=== PATIENT | female | born 1950 | race Caucasian/White ===

== ENCOUNTER 2017-03-01 05:41 | Inpatient (IN) | payer OTHER ==
[2017-02-26 10:02] VITALS: Ht 157.5 cm; Wt 91.0 kg
[2017-03-01] VITALS (48 sets, daily range): BP systolic 98–141; BP diastolic 59–78; PULSE 62–104; RESP 12–20
[~2017-03-01] VITALS: Ht 157.5 cm; Wt 91.0 kg
[~2017-03-01 05:41] MED LIST: ASPI-535; CEFAZOLIN 2 GM/50 ML (PMX) 50 ML IVPB ONE; CEPH-443 PO; CYCL-319 PO; DICL75TA2; ENAL10TA88; HYDR-3498 PO; HYDR-906 PO; LOVA40TA64; METO-53; NAPR-260 PO; RANI150C11; [UNRECOGNIZED DRUG - REMARK] PO; bp med PO; cholesterol med PO; heart med
[2017-03-01] MEDS ORDERED: EPINEPHrine 0.1 MG/ML SYG ONE (07:00)
[2017-03-01] MEDS ORDERED: ATROPINE 1 MG/10 ML SYRINGE ONE (07:00)
[2017-03-01] MEDS ORDERED: ISOS30TA5 PO (07:17)
[2017-03-01] MEDS ORDERED: MECL-77 PO (07:19)
[2017-03-01] MEDS ORDERED: MELO7.5O PO (07:19)
[2017-03-01] MEDS ORDERED: GABA100C14 PO (07:19)
[2017-03-01] MEDS ORDERED: ATOR20TA38 PO (07:19)
--- NOTE | 2017-03-01 07:19 | HPN ---
Date/Time of Note Date/Time of Note DATE: 03/01/17 TIME: 07:19 Interval H&P Admission Note Pt. seen H&P reviewed: No system changes HUEY CELESTE MD Mar 01, 2017 07:19
[2017-03-01] MEDS ORDERED: PROPOFOL 20 ML ONE (07:30)
[2017-03-01] MEDS ORDERED: GLYCOPYRROLATE 0.4 MG INJ ONE (07:30)
[2017-03-01] MEDS ORDERED: ROCURONIUM 50 MG INJ ONE (07:30)
[2017-03-01] MEDS ORDERED: NEOSTIGMINE 3 MG/3 ML SYRINGE ONE (07:31)
[2017-03-01] MEDS ORDERED: CEFAZOLIN 1 GM INJ ONE (07:31)
[2017-03-01] MEDS ORDERED: MIDAZOLAM 1 MG/ML 2 ML INJ ONE (07:34)
[2017-03-01] MEDS ORDERED: ONDANSETRON 4 MG INJ ONE (07:34)
[2017-03-01] MEDS ORDERED: FENTAnyl 50 MCG/ML VIAL ONE (07:34)
[2017-03-01] MEDS ORDERED: DEXAMETHASONE 4 MG/ML 1 ML INJ ONE (07:34)
[2017-03-01] MEDS ORDERED: morphine SULFATE/PF (10 MG/10 ML) INJ ONE (07:35)
[2017-03-01] MEDS ORDERED: PHENYLephrine (100 MCG/ML) 5ML SYG ONE (07:51)
[2017-03-01] MEDS ORDERED: KETOROLAC 30 MG INJ IV PRN (08:30)
[2017-03-01] MEDS ORDERED: EPHEDrine SULFATE 50 MG/5 ML SYG IV PRN (08:30)
[2017-03-01] MEDS ORDERED: LABETALOL HCL 20MG INJ IV PRN (08:30)
[2017-03-01] MEDS ORDERED: FENTAnyl 50 MCG/ML VIAL IV PRN ×3 (08:30)
[2017-03-01] MEDS ORDERED: OXYCODONE/ACETAMINOPHEN (5/325) TAB PO PRN ×2 (08:30)
[2017-03-01] MEDS ORDERED: morphine 4 MG/ML VIAL IV PRN (08:30)
[2017-03-01] MEDS ORDERED: MIDAZOLAM 1 MG/ML 2 ML INJ IV PRN (08:30)
[2017-03-01] MEDS ORDERED: morphine 2 MG INJ IV PRN (08:30)
[2017-03-01] MEDS ORDERED: NALOXONE (0.4 MG/ML) INJ IV PRN (08:30)
[2017-03-01] MEDS ORDERED: HYDROmorphONE (0.2 MG/ML) 10ML SYG IV PRN ×3 (08:30)
[2017-03-01] MEDS ORDERED: ALBUTEROL 0.083% (NEB) 2.5 MG/3 ML AMP HHN PRN (08:30)
[2017-03-01] MEDS ORDERED: ONDANSETRON 4 MG INJ IV PRN ×2 (08:30)
[2017-03-01] MEDS ORDERED: hydrALAzine 20 MG INJ IV PRN (08:30)
[2017-03-01] MEDS ORDERED: MEPERIDINE 25 MG INJ IV PRN (08:30)
[2017-03-01] MEDS ORDERED: IPRATROPIUM (NEB) 0.5 MG/2.5 ML AMP HHN PRN (08:30)
[2017-03-01] MEDS ORDERED: ZOLPIDEM 5 MG TAB PO PRN (08:30)
[2017-03-01] MEDS ORDERED: TRIMETHOBENZAMIDE 100 MG/ML VIAL IM PRN (08:30)
[2017-03-01] MEDS ORDERED: DIPHENHYDRAMINE 50 MG INJ IV PRN ×2 (08:30)
[2017-03-01] MEDS ORDERED: SUGAMMADEX SODIUM 200 MG/2 ML VIAL IV ONE (10:15)
--- NOTE | 2017-03-01 10:52 | SIPON ---
Date/Time of Note Date/Time of Note DATE: 03/01/17 TIME: 10:49 Operative Report Preoperative Diagnosis uterine fibroids Postoperative Diagnosis same see path Operation/Procedure Performed MONICA BSO VAGINAL VAULT suspension Surgeon see signature line assistant food service manager reiche Anesthesia: general, spinal Estimated blood loss: 250 - 300 ml's Transfusion Required none Specimen uterus cervix taqueria tubes and ovaries Grafts/Implants none Complications none HUEY CELESTE MD Mar 01, 2017 10:52
[2017-03-01] MEDS ORDERED: METOCLOPRAMIDE 10 MG INJ ONE (10:59)
[2017-03-01] MEDS: ENALAPRIL 10 MG TAB PO SCH (16:30)
--- NOTE | 2017-03-01 16:36 | CONS ---
Date/Time of Note Date/Time of Note DATE: 03/01/17 TIME: 16:29 Assessment/Plan Assessment/Plan Chief Complaint/Hosp Course 1. intermittent heart block: probably due to high vagal tone during the N/V. r/ o significant underlying arrhythmia. 2. hx LA per pt report but no significant CAD 3. htn 4. obesity 5. dyslipidemia 6. s/p MONICA 7. post op N/V Recommendations: I will check the basic labs now. We will monitor the patient in telemetry overnight to rule out significant arrhythmias. Beta-maria del rosario will be held for the time being. Electrolytes to be checked now and adjust accordingly. post op care as per OB/ Immigration Case Worker Thank you for his referral. We will continue to follow along with you. FARIBA CHAVEZ MD [facility] Problems: Consultation Date/Type/Reason Admit Date/Time Mar 01, 2017 at 05:41 Date of Consultation: Mar 01, 2017 Type of Consultation: cardiology Reason for Consultation heart block Referring Provider: HUEY CELESTE MD Hx of Present Illness CC: S/P MONICA HPI: Thank you for his referral. History was than from discussion with Dr. Celeste discussion with staff and discussion with the patient through knot saw operator. Also discussed with anesthesiologist. This is a 66-year-old I[place]ian female with a reported History of myocardial infarction 4 years ago but "normal coronaries", who underwent hysterectomy today. Postop patient was noted to be hedging and nauseated and vomiting. During this time she was noted to have multiple episodes of pauses per anesthesiologist report. Rhythm history was not available to me at this point mom was not saved however with appear to have P waves which were not followed by QRS. Anesthesia was description. Patient nausea vomiting has resolved and her heart block appeared to be have significantly improved. Patient will be admitted for observation to the telemetry overnight we were kindly asked to evaluate and treat. Patient denies any chest pain or pressure to me. She denies any syncope to me or presyncopal episode. Patient says she has had some syncopal episode may be in YEAR 1999. Patient is on metoprolol and she stated that she took the dose this morning. Past medical history: History of myocardial infarction. Per her report she was admitted to [facility] 4 years ago for myocardial infarction and was kept in the hospital for 4 days. She reports that at that time she had an angiography done and no angioplasty was needed. Patient also with history of hypertension dyslipidemia obesity. Medications were reviewed which include Lipitor 20 metoprolol 50 Family history: No early coronary artery disease Social history patient does not smoke or drink ROS: As above only Social History Smoking Status: Never smoker Exam/Review of Systems Vital Signs Vitals Vital Signs Date Time Temp Pulse Resp B/P Pulse Ox O2 Delivery O2 Flow Rate FiO2 03/01/17 16:15 88 14 126/75 91 Nasal Cannula 03/01/17 11:05 98.0 Intake and Output 02/28/17 02/28/17 03/01/17 15:00 23:00 07:00 Intake Total 2500 ml Output Total 550 ml Balance 1950 ml Exam General: Obese. no acute distress HEENT: NC/AT. pupils are equal. round. NECK: NO JVD. no stridor. CV: RRR. systolic murmur; no gallop or rubs. PULM: no wheezing or rhonchi. GI: s/p surgery + tenderness. Extremity: trace B/L LE edema. no clubbing. neuro: awake and alert, OX3. Psych: calm and pleasant rectal: deferred ECG NSR. Medications Medications Current Medications Morphine Sulfate (morphine) 2 mg Q2H PRN IV PAIN LEVEL 1-5; Start 03/01/17 at 08:30; Stop 03/02/17 at 07:44 Morphine Sulfate (morphine) 4 mg Q2H PRN IV PAIN LEVEL 6-10; Start 03/01/17 at 08:30; Stop 03/02/17 at 07:44 Ketorolac Tromethamine (Toradol) 30 mg Q6H PRN IV PAIN LEVEL 6-10; Start 03/01 at 08:30; Stop 03/02/17 at 07:44 Diphenhydramine HCl (Benadryl) 25 mg Q4H PRN IV PRURITUS; Start 03/01/17 at 08 :30; Stop 03/02/17 at 07:44 Ondansetron HCl (Zofran Inj) 4 mg Q6H PRN IV NAUSEA AND/OR VOMITING Last administered on 03/01/17t 16:10; Admin Dose 4 MG; Start 03/01/17 at 08:30; Stop 03/02/17 at 07:44 Naloxone HCl (Narcan) 0.2 mg Q2M PRN IV FOR RESP RATE 8 OR LESS; Start at 08:30; Stop 03/02/17 at 07:44 FARIBA CHAVEZ MD Mar 01, 2017 16:36
[2017-03-01] MEDS ORDERED: IBUPROFEN 600 MG TAB PO PRN (17:00)
[2017-03-01 17:27] LABS: BASOPHILS % 0.1 % (0.0-2.0); HEMATOCRIT 37.6 % (37.0-47.0); HEMOGLOBIN 12.6 g/dl (12.0-16.0); LYMPHOCYTES # 1.1 10^3/ul (0.8-2.9); LYMPHOCYTES % 6.9 % (15.0-51.0); MEAN CORPUSCULAR HEMOGLOBIN 29.8 pg (29.0-33.0); MEAN CORPUSCULAR HGB CONC 33.5 g/dl (32.0-37.0); MEAN CORPUSCULAR VOLUME 88.9 fl (82.0-101.0); MEAN PLATELET VOLUME 9.2 fl (7.4-10.4); MONOCYTE # 0.7 10^3/ul (0.3-0.9); MONOCYTES % 4.5 % (0.0-11.0); NEUTROPHILS % 87.9 % (39.0-77.0); PLATELET COUNT 202 10^3/UL (140-415); RED BLOOD COUNT 4.23 10^6/ul (4.20-5.40); RED CELL DISTRIBUTION WIDTH 13.2 % (11.5-14.5); WHITE BLOOD COUNT 15.9 10^3/ul (4.8-10.8)
[2017-03-01 17:40] LABS: HOLD TRANSMISSIONS 1
[2017-03-01 17:50] LABS: ALBUMIN 3.8 g/dl (3.3-4.9); ALBUMIN/GLOBULIN RATIO 1.15; BILIRUBIN,INDIRECT 1.1 mg/dl (0-1.1); BILIRUBIN,TOTAL 1.1 mg/dl (0.2-1.3); MAGNESIUM 1.5 mg/dl (1.7-2.5); TOTAL PROTEIN 7.1 g/dl (6.1-8.1)
[2017-03-01 17:57] LABS: CALCIUM 8.6 mg/dl (8.4-10.2); CREATININE 0.76 mg/dl (0.44-1.00); POTASSIUM 4.4 mmol/L (3.5-5.1)
[2017-03-01 18:04] LABS: CREATINE KINASE 177 IU/L (23-200)
[2017-03-01 18:17] LABS: CK-MB 1.22 ng/ml (0.0-2.4)
[2017-03-01 18:21] LABS: THYROID STIMULATING HORMONE 0.838 MIU/L (0.465-4.680); TROPONIN-I < 0.012 ng/ml (0.00-0.12)
--- NOTE | 2017-03-01 19:32 | HP ---
Date/Time of Note Date/Time of Note DATE: 03/01/17 TIME: 19:17 Assessment/Plan VTE Prophylaxis VTE Prophylaxis Intervention: ambulation, SCD's Assessment/Plan Assessment/Plan uterine fibroid plan MONICA BSO HPI/ROS Admit Date/Time Admit Date/Time Mar 01, 2017 at 05:41 Hx of Present Illness 66 y.o x1 x1 cearean sectionwho is admitted for MONICA BSO for uterine fibroid which is increaed in size significantly in less than one year. which was discovered on mineral mixer exam for vulva lesion no significant symptoms but growing rather rapidly in short period after menopause.risks from surgical procedure and anesthesia from minor to serious discussed in detail ,agree to receive surgical intervention. patient was cleared for surgical procedure by her physician preop. 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, endocervial polypectomy) Family History Significant Family History: hypertension (mother) Social History Alcohol Use: none Smoking Status: Current every day smoker Drug Use: none Exam/Review of Systems Vital Signs Vitals Vital Signs Date Time Temp Pulse Resp B/P Pulse Ox O2 Delivery O2 Flow Rate FiO2 03/01/17 18:07 104 03/01/17 17:04 13 125/64 93 Nasal Cannula 03/01/17 11:05 98.0 Intake and Output 02/28/17 02/28/17 03/01/17 15:00 23:00 07:00 Intake Total 2500 ml Output Total 550 ml Balance 1950 ml Exam Constitutional: alert, oriented, well developed Psych: nl mood/affect, no complaints Head: atraumatic, normocephalic Eyes: EOMI, PERRL, nl conjunctiva, nl lids, nl sclera ENMT: nl external ears & nose, nl lips & teeth, nl nasal mucosa & septum Neck: non-tender, supple Respiratory: clear to auscultation, normal air movement Cardiovascular: nl pulses, regular rate and rhythm Gastrointestinal: nl liver, spleen, non-tender, soft Genitourinary - Male: other Genitourinary - Female: other, uterus (enlarged midline mass) Musculoskeletal: nl extremities to inspection Extremities: normal pulses Neurological: DRUPAL PROGRAMMER II-XII intact, nl mental status, nl speech, nl strength Skin: nl turgor, No rash or lesions Lymph: nl lymph nodes Labs Result Diagram: 03/01/17 1720 03/01/17 1720 Medications Medications Current Medications Morphine Sulfate (morphine) 2 mg Q2H PRN IV PAIN LEVEL 1-5; Start 03/01/17 at 08:30; Stop 03/02/17 at 07:44 Morphine Sulfate (morphine) 4 mg Q2H PRN IV PAIN LEVEL 6-10; Start 03/01/17 at 08:30; Stop 03/02/17 at 07:44 Ketorolac Tromethamine (Toradol) 30 mg Q6H PRN IV PAIN LEVEL 6-10; Start 03/01 at 08:30; Stop 03/02/17 at 07:44 Diphenhydramine HCl (Benadryl) 25 mg Q4H PRN IV PRURITUS; Start 03/01/17 at 08 :30; Stop 03/02/17 at 07:44 Ondansetron HCl (Zofran Inj) 4 mg Q6H PRN IV NAUSEA AND/OR VOMITING Last administered on 03/01/17t 16:10; Admin Dose 4 MG; Start 03/01/17 at 08:30; Stop 03/02/17 at 07:44 Naloxone HCl (Narcan) 0.2 mg Q2M PRN IV FOR RESP RATE 8 OR LESS; Start at 08:30; Stop 03/02/17 at 07:44 Atorvastatin Calcium (Lipitor) 20 mg HS PO ; Start 03/01/17 at 21:00 Enalapril Maleate (Vasotec) 10 mg DAILY PO ; Start 03/01/17 at 16:30 Ibuprofen (Motrin) 600 mg Q6H PRN PO PAIN LEVEL 6-10; Start 03/01/17 at 17:00 Acetaminophen/ Hydrocodone Bitart ([place] (5/325)) 1 tab Q4H PRN PO PAIN LEVEL 7 -10; Start 03/01/17 at 17:00 HUEY CELESTE MD Mar 01, 2017 19:27
[2017-03-01] MEDS: ATORVASTATIN 20 MG TAB PO SCH (20:52)
[2017-03-02] VITALS (12 sets, daily range): BP systolic 107–140; BP diastolic 59–79; PULSE 93–101; RESP 17–20
--- NOTE | 2017-03-02 01:02 | OPR ---
DATE OF OPERATION: 03/01/2017 PREOPERATIVE DIAGNOSIS: Uterine fibroid. POSTOPERATIVE DIAGNOSIS: Uterine fibroid. OPERATION PERFORMED: Total abdominal hysterectomy, bilateral salpingo-oophorectomy. ANESTHESIA: Spinal for the postop pain management and general for the surgery. ANESTHESIOLOGIST: Dr. Wellington. SURGEON: Mary Rivera MD SKIN DRIER: Dr. Aguilar. ESTIMATED BLOOD LOSS: 300 mL. PROCEDURE: Under proper induction of spinal anesthesia, the patient was placed in the frog position . Sharp catheter was introduced into the bladder. After the vaginal and perineal prep done and rep ositioned to supine, abdominal wall was prepped and draped in usual aseptic manner. A Pfannenstiel incision was made. Incision was carried down through the subcutaneous tissue to the anterior rectus fascia which was incised transversely the length of the incision. A fascial flap was created by bl unt and sharp dissection of tendinous attachment upward and downward. The patient was placed in the Trendelenburg position and the uterus and ovaries were explored. Uterus was approximately 18 weeks gestational size and surface was smooth. In the fundal area, a possible ____ fibroid was located on palpation. Both ovaries and fallopian tubes were both felt to be small. At this point, the uterus was trying to be exteriorized in order to do the initiation of the procedure, which was extremely d ifficult because of the size, which was exteriorized and there was no space on the lateral aspect of the uterus in order to proceed with surgical procedure. At this point, the fundus was palpated and also according to the ultrasound, there was a solitary possible fibroid deeply located, which was e nucleated by incising the overlying myometrium and a large fibroid which was approximately 11 cm in diameter was enucleated successfully by doing this and to obtain some space on the lateral aspect, s o the procedure was initiated. So, without putting the retractor, both cornua were clamped with a _ ___ and the defect area also closed with Willard forceps and the left round ligament was clamped and c ut, ligated with #1 chromic catgut, and the broad ligament was windowed and the left infundibulopelv ic ligament was clamped and doubly ligated with #1 chromic catgut. Further skeletonization on the l eft side of uterine vessel was done and the uterine vessel was clamped and cut, transfixed with #1 c hromic catgut. After the anterior leaf of the broad ligament was incised inferomedially, the bladde r flap was created and the bladder was pushed away from the cervix. On the right side, the same thi ng, right round ligament was clamped and cut, ligated with #1 chromic catgut suture, was left long f or the vaginal suspension and the broad ligament was windowed and the right infundibulopelvic ligame nt was clamped and cut and doubly ligated with #1 chromic catgut. Further skeletonization of the ut erine vessel after we pushed the bladder away from the cervix and uterine vessel was clamped and cut , ligated with #1 chromic catgut. We then marked the difficulty due to the poor exposure due to bod y habitus. The uterosacral ligament was clamped and cut, ligated with #1 chromic catgut and upper c ardinal ligament was clamped and cut, ligated with #1 chromic catgut. At this point, the fundus was going to be removed from the operative field for better visualization. So, the fundus was excised from the cervix and the cervical stump was grasped with a single-toothed tenaculum. Further dissect ion of bladder obtained and ____ retractor was introduced and multiple bites of cardinal ligament wa s clamped and cut, ligated with #1 chromic catgut on each side and the cervical vaginal fold reached and I decided to do anteriorly entering the vaginal cavity by using the scalpel. Through this a sm all incision, ____ procedure was used before removal of the whole cervix and the vaginal vault was h eld with multiple Kochers with marked difficulty due to the body habitus. Because of the poor visua lization and the bladder blade, and the upper blade was not really working properly because of the t hick upper abdominal wall, at this point, an Allen was introduced after removal of ____ retractor. Vaginal vault was closed using #1 chromic catgut starting on both angles and hemostatic ligature wa s placed on each angle. The rest of the vaginal vault was closed with multiple fjfvkt-dt-btgdu sutu res using 0 chromic catgut. There was a bleeder in the left adnexal area which was separately contr olled with 2-0 chromic catgut. Irrigation done and the procedure was completed. A piece of Surgice l was placed and Interceed was applied on the surgical site for prevention of adhesions. All the in struments and sponges were removed and sponge count taken, which was correct. Parietal peritoneum w as closed using 0 chromic catgut in continuous manner, muscle closed with 0 chromic catgut in contin uous manner. The fascia closed with #1 Vicryl in continuous manner in 2 segments. All the bleeders were controlled properly on the subcutaneous layer, which was approximated with 2-0 plain in contin uous manner after irrigation done. Skin was closed with Insorb. Steri-Strips applied. Pressure dr farooq applied. Estimated blood loss approximately 300 mL. Patient withstood procedure well. After the surgery was finished and after I left the OR, I got a phone call from Dr. Wellington, who w as requesting a cardiology consult for heart block, which was done, called the doctor for that, who will be available to evaluate the patient in 2 hours, and patient will be kept in the postanesthesia room instead of sending to either telemetry or ICU. It will be decided by nursing service director when he arri ves to evaluate the patient. Dictated By: MARY ISAAC/CHIO Conf#: [id number] DID#: [id number]
[2017-03-02] MEDS: ENALAPRIL 10 MG TAB PO SCH (11:43)
[2017-03-02] MEDS: HYDROCODONE/APAP (5/325) TAB PO PRN ×2 (11:52→18:53)
--- NOTE | 2017-03-02 12:45 | PN ---
Date/Time of Note Date/Time of Note DATE: 03/02/17 TIME: 12:40 Assessment/Plan Lines/Catheters IV Catheter Type (from Nrsg): Peripheral IV Assessment/Plan Assessment/Plan stable post MONICA BSO#1 as ordered Subjective 24 Hr Interval Summary passing flatus no chest pain or chest tightness Exam/Review of Systems Vital Signs Vitals Vital Signs Date Time Temp Pulse Resp B/P Pulse Ox O2 Delivery O2 Flow Rate FiO2 03/02/17 12:16 93 03/02/17 11:14 99.1 18 127/70 95 03/01/17 18:30 Nasal Cannula 2.0 Intake and Output 03/01/17 03/01/17 03/02/17 14:59 22:59 06:59 Intake Total 120 ml Output Total 600 ml Balance -480 ml Exam Free Text/Dictation heart rate 90's temp 99 abdomen soft wound dry no vaginal bleeding wbc 15.9000 Results Result Diagram: 03/01/17 1720 03/01/17 1720 HUEY CELESTE MD Mar 02, 2017 12:45
[2017-03-02] MEDS ORDERED: DOCUSATE SODIUM 250 MG CAP PO ONE (13:00)
[2017-03-02] MEDS ORDERED: ONDANSETRON 4 MG INJ IV PRN (13:00)
[2017-03-02 13:42] LABS: ADD UMIC YES; UR ASCORBIC ACID NEGATIVE (NEGATIVE); UR BILIRUBIN (Dip) NEGATIVE (NEGATIVE); UR BLOOD (Dip) 2+ mg/dL (NEGATIVE); UR CLARITY CLEAR (CLEAR); UR COLOR YELLOW (YELLOW); UR GLUCOSE (Dip) NEGATIVE (NEGATIVE); UR KETONES (Dip) NEGATIVE (NEGATIVE); UR LEUKOCYTE ESTERASE (Dip) NEGATIVE Leu/ul (NEGATIVE); UR MUCUS FEW /HPF (NONE SEEN); UR NITRITE (Dip) NEGATIVE (NEGATIVE); UR RBC 52 /HPF (0-5); UR SPECIFIC GRAVITY (Dip) 1.019 (1.003-1.030); UR TOTAL PROTEIN (Dip) NEGATIVE (NEGATIVE); UR UROBILINOGEN (Dip) NEGATIVE (NEGATIVE)
[2017-03-02 14:57] LABS: BASOPHILS % 0.1 % (0.0-2.0); HEMATOCRIT 37.4 % (37.0-47.0); HEMOGLOBIN 12.3 g/dl (12.0-16.0); LYMPHOCYTES # 2.6 10^3/ul (0.8-2.9); LYMPHOCYTES % 18.7 % (15.0-51.0); MEAN CORPUSCULAR HEMOGLOBIN 29.7 pg (29.0-33.0); MEAN CORPUSCULAR HGB CONC 32.9 g/dl (32.0-37.0); MEAN CORPUSCULAR VOLUME 90.3 fl (82.0-101.0); MEAN PLATELET VOLUME 9.7 fl (7.4-10.4); MONOCYTE # 1.2 10^3/ul (0.3-0.9); NEUTROPHIL # 9.8 10^3/ul (1.6-7.5); NEUTROPHILS % 71.3 % (39.0-77.0); PLATELET COUNT 212 10^3/UL (140-415); RED BLOOD COUNT 4.14 10^6/ul (4.20-5.40); RED CELL DISTRIBUTION WIDTH 13.2 % (11.5-14.5); WHITE BLOOD COUNT 13.7 10^3/ul (4.8-10.8)
--- NOTE | 2017-03-02 15:52 | CONS ---
Date/Time of Note Date/Time of Note DATE: 03/02/17 TIME: 15:50 Consult Date/Type/Reason Admit Date/Time Mar 01, 2017 at 05:41 Initial Consult Date 03/01/17 Type of Consultation: cardiology Ordering Provider: HUEY CELESTE MD Subjective cardiology follow up note: S: d/w staff and rhythm was reviewed. pt remains in NSR. no more significant pauses noted. no cp no syncope O: General: Obese. no acute distress HEENT: NC/AT. pupils are equal. round. NECK: NO JVD. no stridor. CV: RRR. systolic murmur; no gallop or rubs. PULM: no wheezing or rhonchi. GI: s/p surgery + tenderness. Extremity: trace B/L LE edema. no clubbing. neuro: awake and alert, OX3. Psych: calm and pleasant rectal: deferred ECG NSR. Objective Vital Signs Date Time Temp Pulse Resp B/P Pulse Ox O2 Delivery O2 Flow Rate FiO2 03/02/17 15:26 98.9 95 18 140/73 95 03/01/17 18:30 Nasal Cannula 2.0 Intake and Output 03/01/17 03/01/17 03/02/17 14:59 22:59 06:59 Intake Total 120 ml Output Total 600 ml Balance -480 ml Results/Medications Result Diagram: 03/02/17 1416 03/01/17 1720 Results 24 hrs Laboratory Tests Test 03/01/17 17:20 03/02/17 12:45 03/02/17 14:16 White Blood Count 15.9 H 13.7 H Red Blood Count 4.23 4.14 L Hemoglobin 12.6 12.3 Hematocrit 37.6 37.4 Mean Corpuscular Volume 88.9 90.3 Mean Corpuscular Hemoglobin 29.8 29.7 Mean Corpuscular Hemoglobin Concent 33.5 32.9 Red Cell Distribution Width 13.2 13.2 Platelet Count 202 212 Mean Platelet Volume 9.2 9.7 Neutrophils % 87.9 H 71.3 Lymphocytes % 6.9 L 18.7 Monocytes % 4.5 9.0 Eosinophils % 0.0 0.0 Basophils % 0.1 0.1 Nucleated Red Blood Cells % 0.0 0.0 Neutrophils # 14.0 H 9.8 H Lymphocytes # 1.1 2.6 Monocytes # 0.7 1.2 H Eosinophils # 0.0 0.0 Basophils # 0.0 0.0 Nucleated Red Blood Cells # 0.0 0.0 CBC Results Faxed/Phoned 1 *H Sodium Level 141 Potassium Level 4.4 Chloride Level 107 Carbon Dioxide Level 26 Anion Gap 12 Blood Urea Nitrogen 19 Creatinine 0.76 Glucose Level 162 Calcium Level 8.6 Magnesium Level 1.5 L Total Bilirubin 1.1 Direct Bilirubin 0.00 Indirect Bilirubin 1.1 Aspartate Amino Transf (AST/SGOT) 29 Alanine Aminotransferase (ALT/SGPT) 49 Alkaline Phosphatase 61 Creatine Kinase 177 Creatine Kinase Index 0.7 Creatinine Kinase MB (Mass) 1.22 Troponin I < 0.012 Total Protein 7.1 Albumin 3.8 Globulin 3.30 H Albumin/Globulin Ratio 1.15 Thyroid Stimulating Hormone (TSH) 0.838 Free Thyroxine 1.05 Digoxin Level < 0.4 L Urine Color YELLOW Urine Clarity CLEAR Urine pH 5.0 Urine Specific [place] 1.019 Urine Ketones NEGATIVE Urine Nitrite NEGATIVE Urine Bilirubin NEGATIVE Urine Urobilinogen NEGATIVE Urine Leukocyte Esterase NEGATIVE Urine Microscopic RBC 52 H Urine Microscopic WBC 6 H Urine Mucus FEW A Urine Hemoglobin 2+ H Urine Glucose NEGATIVE Urine Total Protein NEGATIVE Medications Current Medications Atorvastatin Calcium (Lipitor) 20 mg HS PO Last administered on 03/01/17 20: 52; Admin Dose 20 MG; Start 03/01/17 at 21:00 Enalapril Maleate (Vasotec) 10 mg DAILY PO Last administered on 03/02/17 11: 43; Admin Dose 10 MG; Start 03/01/17 at 16:30 Ibuprofen (Motrin) 600 mg Q6H PRN PO PAIN LEVEL 6-10; Start 03/01/17 at 17:00 Acetaminophen/ Hydrocodone Bitart ([place] (5/325)) 1 tab Q4H PRN PO PAIN LEVEL 7 -10 Last administered on 03/02/17 11:52; Admin Dose 1 TAB; Start 03/01/17 at 17:00 Ondansetron HCl (Zofran Inj) 4 mg Q6H PRN IV NAUSEA AND/OR VOMITING; Start at 13:00 Simethicone (Mylicon) 80 mg Q6 PO Last administered on 03/02/17 15:28; Admin Dose 80 MG; Start 03/02/17 at 16:00 Assessment/Plan Chief Complaint/Hosp Course 1. intermittent heart block:due to high vagal tone during the N/V. resolved now. 2. hx NV per pt report but no significant CAD 3. htn 4. obesity 5. dyslipidemia 6. s/p MONICA 7. post op N/V Recommendations: ok to resume betablocker no more need for tele. out pt follow up with her PCP/ human capital analyst. ok to dc from cardiac stand point. I will sign off and follow up prn Thank you for his referral. FARIBA CHAVEZ MD [facility] Problems: FARIBA CHAVEZ MD Mar 02, 2017 15:52
--- NOTE | 2017-03-02 16:18 | RADRPT ---
Echocardiogram Report Patient Name: MAHSA MERCEDES Gender: Female Date: 1950 Study Date: 02-Mar-2017 Quality Control Inspector Heading: Shaan Arnett [facility] Location: [facility] Ref. Physician: FARIBA PIERRE Quality: Good Procedures: Transthoracic echocardiogram with complete 2D, M-Mode, and doppler examination. Indications: heart block. 2D/M Mode Doppler Measurement Value Normal Ranges Measurement Value Normal Ranges LVIDd 2D 4.6 3.5 - 5.6 cm AV Peak Frank 2.0 m/sec LVIDs 2D 2.6 2.1 - 4.1 cm AV Peak PG 15.2 mmHg LVPWd 2D 0.9 0.6 - 1.1 cm LVOT Peak Frank 1.3 m/sec IVSd 2D 0.8 0.6 - 1.1 cm LVOT Peak PG 6.9 mmHg AoR Diam 2D 2.9 2.0 - 3.7 cm MV E Peak Frank 0.9 m/sec EDV 2D 97.9 cm3 MV A Peak Frank 1.1 m/sec ESV 2D 17.1 cm3 MV E/A 0.8 LA Dimen 2D 3.1 2.3 - 4.0 cm MV Decel Time 130 msec MV Decel Meade 7 MV E/A 0.8 TR Peak Frank 2.7 m/sec TR Peak PG 29.3 mmHg RVSP 39.0 mmHg Findings Left Ventricle: Normal left ventricular systolic function. Normal left ventricular cavity size. Normal left ventricular wall thickness. Ejection fraction is visually estimated at 65 %. Tissue Doppler/Mitral Doppler indices are consistent with impaired relaxation (Stage I diastolic dysfunction). Right Ventricle: Normal right ventricular size. Normal right ventricular systolic function. Left Atrium: The left atrium is normal in size. Right Atrium: The right atrium is normal in size. Mitral Valve: Normal appearance of the mitral valve. Moderate mitral annular calcification. Trace mitral regurgitation. Aortic Valve: Aortic sclerosis without stenosis. Trace aortic valve regurgitation. Tricuspid Valve: Normal appearance of the tricuspid valve. Estimated peak PA systolic pressure 39 mmHg. There is mild tricuspid regurgitation. Pulmonic Valve: Normal pulmonic valve appearance. Pericardium: Normal pericardium with no significant pericardial effusion. Aorta: Normal aortic root. IVC: Dilated IVC with respiratory collapse consistent with elevated right atrial pressure. Conclusions 1.Normal left ventricular systolic function. Normal left ventricular cavity size. Normal left ventricular wall thickness. Ejection fraction is visually estimated at 65 %. Tissue Doppler/Mitral Doppler indices are consistent with impaired relaxation (Stage I diastolic dysfunction). 2.The left atrium is normal in size. 3.Normal appearance of the mitral valve. Moderate mitral annular calcification. Trace mitral regurgitation. 4.Aortic sclerosis without stenosis. Trace aortic valve regurgitation. 5.Normal appearance of the tricuspid valve. Estimated peak PA systolic pressure 39 mmHg. There is mild tricuspid regurgitation. Electronically Signed By: Fariba Pierre 02-Mar-2017 16:18:37 -0800 Patient Name: MAHSA MERCEDES Study Date: [id number]
[2017-03-02] MEDS: ATORVASTATIN 20 MG TAB PO SCH (21:05)
[2017-03-02] MEDS: METOPROLOL 25 MG TAB PO SCH (21:08)
--- NOTE | 2017-03-02 21:48 | RADRPT ---
Vent Rate: 90 bpm RR Interval: 0 msec AL Interval: 188 msec QRS Duration: 78 msec QT Interval: 390 msec QTC Interval: 477 msec P-R-T [place]: 49 - 14 - 55 degrees Normal sinus rhythm Normal ECG Electronically Signed By: Darrell Downing [id number]
[2017-03-03] VITALS (12 sets, daily range): BP systolic 88–148; BP diastolic 63–80; PULSE 80–101; RESP 17–18
[2017-03-03] MEDS: ENALAPRIL 10 MG TAB PO SCH (08:18)
[2017-03-03] MEDS: METOPROLOL 25 MG TAB PO SCH ×2 (08:19→20:39)
--- NOTE | 2017-03-03 19:58 | PN ---
Date/Time of Note Date/Time of Note DATE: 03/03/17 TIME: 19:51 Assessment/Plan Lines/Catheters IV Catheter Type (from Nrsg): Peripheral IV Subjective 24 Hr Interval Summary s; no c/o had b.m urination ok o vss alonzo max 99.3 abdomen soft ,wound dry no vaginal bleeding pathology report reviewed A stable cardiology signed off P discharge home in am Exam/Review of Systems Vital Signs Vitals Vital Signs Date Time Temp Pulse Resp B/P Pulse Ox O2 Delivery O2 Flow Rate FiO2 03/03/17 19:43 98.4 99 18 131/63 97 03/02/17 21:10 Nasal Cannula 2.0 Intake and Output 03/02/17 03/02/17 03/03/17 14:59 22:59 06:59 Intake Total 700 ml 600 ml Output Total 900 ml Balance -200 ml 600 ml Results Result Diagram: 03/02/17 1416 03/01/17 1720 HUEY CELESTE MD Mar 03, 2017 19:58
[2017-03-03] MEDS: ATORVASTATIN 20 MG TAB PO SCH (20:36)
[2017-03-04] VITALS (10 sets, daily range): BP systolic 127–160; BP diastolic 73–88; PULSE 76–87; RESP 18–20
--- NOTE | 2017-03-04 07:47 | CONS ---
Date/Time of Note Date/Time of Note DATE: 03/04/17 TIME: 07:46 Consult Date/Type/Reason Admit Date/Time Mar 01, 2017 at 05:41 Initial Consult Date 03/01/17 Type of Consultation: cardiology Ordering Provider: HUEY CELESTE MD Subjective cardiology follow up note: S: d/w staff and rhythm was reviewed. pt remains in NSR. no more significant pauses noted. no cp no syncope no abd pain O: General: Obese. no acute distress HEENT: NC/AT. pupils are equal. round. NECK: NO JVD. no stridor. CV: RRR. systolic murmur; no gallop or rubs. PULM: no wheezing or rhonchi. GI: s/p surgery + tenderness. Extremity: trace B/L LE edema. no clubbing. neuro: awake and alert, OX3. Psych: calm and pleasant rectal: deferred ECG NSR. Objective Vital Signs Date Time Temp Pulse Resp B/P Pulse Ox O2 Delivery O2 Flow Rate FiO2 03/04/17 07:44 99.9 88 18 160/88 98 03/03/17 20:40 Nasal Cannula 2.0 Intake and Output 03/03/17 03/03/17 03/04/17 15:00 23:00 07:00 Intake Total 1200 ml 400 ml Balance 1200 ml 400 ml Results/Medications Result Diagram: 03/02/17 1416 03/01/17 1720 Medications Current Medications Atorvastatin Calcium (Lipitor) 20 mg HS PO Last administered on 03/03/17 20: 36; Admin Dose 20 MG; Start 03/01/17 at 21:00 Enalapril Maleate (Vasotec) 10 mg DAILY PO Last administered on 03/03/17 08: 18; Admin Dose 10 MG; Start 03/01/17 at 16:30 Ibuprofen (Motrin) 600 mg Q6H PRN PO PAIN LEVEL 6-10; Start 03/01/17 at 17:00 Acetaminophen/ Hydrocodone Bitart ([place] (5/325)) 1 tab Q4H PRN PO PAIN LEVEL 7 -10 Last administered on 03/02/17 18:53; Admin Dose 1 TAB; Start 03/01/17 at 17:00 Ondansetron HCl (Zofran Inj) 4 mg Q6H PRN IV NAUSEA AND/OR VOMITING; Start at 13:00 Simethicone (Mylicon) 80 mg Q6 PO Last administered on 03/04/17 06:27; Admin Dose 80 MG; Start 03/02/17 at 16:00 Metoprolol Tartrate (Lopressor) 25 mg BID PO Last administered on 03/03/17 20 :39; Admin Dose 25 MG; Start 03/02/17 at 21:00 Assessment/Plan Chief Complaint/Hosp Course 1. intermittent heart block:due to high vagal tone during the N/V. resolved now. 2. hx [place] per pt report but no significant CAD 3. htn 4. obesity 5. dyslipidemia 6. s/p MONICA 7. post op N/V Recommendations: pt is stable back on betablocker no more need for tele. 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 ok to dc from cardiac stand point. I will sign off and follow up prn Thank you for his referral. FARIBA CHAVEZ MD [facility] Problems: FARIBA CHAVEZ MD Mar 04, 2017 07:47
[2017-03-04] MEDS: ENALAPRIL 10 MG TAB PO SCH (08:43)
[2017-03-04] MEDS ORDERED: METOPROLOL 50 MG TAB PO SCH (09:00)
--- NOTE | 2017-03-04 17:23 | PD.PPDC ---
[employer] Discharge Instruction Diagnosis Final Diagnosis: uterine fibroids s/p MONICA BSO Condition Patient Condition: Stable Diet Diet: Resume Regular Diet Activity/Restrictions Activity: May Shower Restrictions: No Exercising No Lifting No Driving Minimize Stair-climbing No Sexual Activity Nothing in the Vagina No [place] No Tampons, douche Wound/Drain Care Instructions Wound/Drain Care Instructions: Wash with soap and water Keep clean and dry Follow-up Follow-up with Physician: 2, Week/Weeks Return to clinic for SCRAP CRUSHER Instructions: Fever greater than 101 Chills Worsening abdominal pain Excessive Vaginal Bleeding More than 2 pads per hour Unable to tolerate diet Surgical Instructions: Incisional Drainage Incisional Redness HUEY CELESTE MD Mar 04, 2017 17:23
--- NOTE | 2017-03-04 17:40 | DS ---
Date/Time of Note Date/Time of Note DATE: 03/04/17 TIME: 17:35 Discharge Summary Admission/Discharge Info Admit Date/Time Mar 01, 2017 at 05:41 Discharge Date/Time feb, [id number] Discharge Diagnosis uterine fibroid Patient Condition: Stable Consults Gabby Procedures MONICA BSO Hx of Present Illness 66 y.o x1 x1 cearean sectionwho is admitted for MONICA BSO for uterine fibroid which is increaed in size significantly in less than one year. which was discovered on ironer or presser exam for vulva lesion no significant symptoms but growing rather rapidly in short period after menopause.risks from surgical procedure and anesthesia from minor to serious discussed in detail ,agree to receive surgical intervention. patient was cleared for surgical procedure by her physician preop. Hospital Course 1. intermittent heart block:due to high vagal tone during the N/V. resolved now. 2. hx [place] per pt report but no significant CAD 3. htn 4. obesity 5. dyslipidemia 6. s/p MONICA 7. post op N/V Recommendations: pt is stable back on betablocker no more need for tele. 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 ok to dc from cardiac stand point. I will sign off and follow up prn Thank you for his referral. FARIBA CHAVEZ MD [facility] postop ambulating well tolerating diet .had b.m urination mayela baker report uterine fibroid Home Meds Active Scripts Cyclobenzaprine Hcl* (Cyclobenzaprine Hcl*) 10 Mg Tablet, 10 MG PO TID, #15 TAB Prov:NOHELIA RIVAS PA-C 02/08/16 Cephalexin* (Keflex*) 500 Mg Capsule, 500 MG PO QID for 5 Days, CAP Prov:MAITE ANDRE PA-C 06/24/15 Reported Medications Atorvastatin Calcium* (Atorvastatin Calcium*) 20 Mg Tablet, 20 MG PO QHS, #30 TAB 03/01/17 Meclizine Hcl* (Meclizine Hcl*) 25 Mg Tablet, 25 MG PO DAILY Y for DIZZINESS, TAB 03/01/17 Gabapentin* (Gabapentin*) 100 Mg Capsule, 100 MG PO DAILY, #90 CAP 03/01/17 Isosorbide Mononitrate* (Isosorbide Mononitrate*) 30 Mg Tab.er.24h, 30 MG PO DAILY, TAB 03/01/17 Aspirin Ec (Aspir 81) 81 Mg Tablet. 05/15/10 Lovastatin* (Altoprev*) 40 Mg Tab.sr.24h 05/15/10 Diclofenac Sodium* (Diclofenac Sodium*) 75 Mg Tablet. 05/15/10 Enalapril (Enalapril) 10 Mg Tablet 05/15/10 Discontinued Reported Medications Meloxicam* (Meloxicam*) 7.5 Mg/5 Ml Oral.susp, 15 MG PO DAILY, #300 ML 03/01/17 [heart med] No Conflict Check 10/25/15 [dizzynes] No Conflict Check, PO 10/25/15 [cholesterol med] No Conflict Check, PO 10/25/15 [bp med] No Conflict Check, PO DAILY 10/25/15 Metoprolol (Lopressor) 50 Mg Tablet 05/15/10 Ranitidine Hcl (Ranitidine Hcl) 150 Mg Capsule 05/15/10 Discontinued Scripts Naproxen* (Naprosyn*) 500 Mg Tablet, 500 MG PO BID Y for PAIN AND/OR INFLAMMATION, #30 TAB Prov:NOHELIA RIVAS PA-C 02/08/16 Hydrocodone/Acetaminophen ([place] 5-325 Tablet) 1 Each Tablet, 1 TAB PO Q6H Y for PAIN, #7 TAB Prov:NOHELIA RIVAS PA-C 02/08/16 Hydrocodone Bit-Acetaminophen* ([place]*) 5-325 Mg Tab, 1 TAB PO Q6 Y for SEVERE PAIN LEVEL 7-10, #10 TAB Prov:LUIS ANTONIO LOUIS NP 09/05/15 Hydrocodone Bit-Acetaminophen* ([place]*) 5-325 Mg Tab, 1 TAB PO Q6 Y for PAIN, # 10 TAB Prov:MAITE ANDRE PA-C 06/24/15 Primary Care Provider HUEY Darden MD Mar 04, 2017 17:40
== END 2017-03-04 19:09 | disposition home or self-care (01) | DRG 743 ==
LOC: REC 05:41 → EDSTATUS 07:30 → TEL 17:51
PROVIDERS: ADMIT Obstetrics & Gynecology; ATTEND Obstetrics & Gynecology
PROC: 0UT20ZZ Resection of Bilateral Ovaries, Open Approach (ICD-10-PCS; 2017-03-01)
PROC: 0UB70ZZ Excision of Bilateral Fallopian Tubes, Open Approach (ICD-10-PCS; 2017-03-01)
PROC: 0UT90ZZ Resection of Uterus, Open Approach (ICD-10-PCS; principal; 2017-03-01 07:30)
DX: D25.9 Leiomyoma of uterus, unspecified (principal); I10 Essential (primary) hypertension; E78.5 Hyperlipidemia, unspecified; E66.9 Obesity, unspecified; I45.5 Other specified heart block; I25.2 Old myocardial infarction; Z86.73 Personal history of transient ischemic attack (TIA), and cerebral infarction without residual deficits; Z68.36 Body mass index [BMI] 36.0-36.9, adult
CPT/HCPCS: 80053; 80162; 81001; 82550; 82553; 83735; 84439; 84443; 84484; 85025; 86850; 86900; 86901; 86920; 93005; 93306; J0171; J0461; J0690; J1100; J2250; J2274; J2370; J2405; J2710; J2765; J3010

== ENCOUNTER 2017-12-31 12:53 | Emergency (ER) | END 2017-12-31 19:28 | disposition home or self-care (01) ==

== ENCOUNTER 2018-06-09 22:50 | Emergency (ER) | payer MEDICARE, OTHER ==
[~2018-06-09] VITALS: Ht 160 cm; Wt 100.0 kg
[~2018-06-09 22:50] MED LIST changes: -ASPI-535; +ASPI81TA50 PO; +ATOR20TA38 PO; -CEFAZOLIN 2 GM/50 ML (PMX) 50 ML IVPB ONE; -CEPH-443 PO; -CYCL-319 PO; -DICL75TA2; +DICY10CA40 PO; -ENAL10TA88; +ERGO500013 PO; +GABA100C14 PO; -HYDR-3498 PO; -HYDR-906 PO; +ISOS60TA PO; +LOSA1TAB28 PO; -LOVA40TA64; +MECL-77 PO; +METO-429 PO; -METO-53; -NAPR-260 PO; +OMEP40CA6 PO; -RANI150C11; -[UNRECOGNIZED DRUG - REMARK] PO; -bp med PO; -cholesterol med PO; -heart med
[2018-06-09 22:53] VITALS: Ht 160 cm; Wt 100.0 kg
[2018-06-10 01:58] VITALS: BP 150/90; PULSE 70; RESP 19
[2018-06-10] MEDS ORDERED: IBUP800T48 PO (02:03)
[2018-06-10] MEDS ORDERED: DIAZ5TAB PO (02:03)
--- NOTE | 2018-06-10 02:06 | ERD ---
ER Documentation Chief Complaint Chief Complaint BACK PAIN HPI 68-year-old female presents to the emergency room complaining of paraspinal lumbar back pain that started earlier today. Patient was in a truck and it went over a bump and she moved awkwardly. She felt a pulling sensation and since then has had spasms and pain to the lumbar back. She took Motrin prior to arrival with a dramatic improvement of her symptoms. Pain is only 2 out of 10 currently. She denies any bowel or bladder incontinence and retention. No fevers or chills. No significant falls or injury. No numbness or tingling or radiation to the legs. ROS All systems reviewed and are negative except as per history of present illness. Medications Home Meds Active Scripts Diazepam* (Valium*) 5 Mg Tablet, 5 MG PO Q8 PRN for MUSCLE SPASMS, #10 TAB Prov:YESSENIA CARROLL MD 06/10/18 Ibuprofen* (Motrin*) 800 Mg Tab, 800 MG PO Q6H PRN for PAIN AND OR ELEVATED TEMP, #30 TAB Prov:YESSENIA CARROLL MD 06/10/18 Dicyclomine HCl (Dicyclomine HCl) 10 Mg Capsule, 10 MG PO TID PRN for ABDOMINAL CRAMPING, #20 CAP Prov:YESSENIA CARROLL MD 12/31/17 Reported Medications Aspirin (Aspir-Low) 81 Mg Tablet.dr, 81 MG PO DAILY 12/31/17 Omeprazole* (Omeprazole*) 40 Mg Capsule.dr, 40 MG PO DAILY, #30 CAP 12/31/17 Losartan-Hydrochlorothiazide (Losartan-HCTZ) 100-12.5 Mg Tab, 1 TAB PO DAILY, TAB 12/31/17 Atorvastatin Calcium* (Atorvastatin Calcium*) 20 Mg Tablet, 20 MG PO QHS, #30 TAB 12/31/17 Gabapentin* (Gabapentin*) 100 Mg Capsule, 100 MG PO DAILY, #90 CAP 12/31/17 Isosorbide Mononitrate* (Isosorbide Mononitrate*) 60 Mg Tab.er.24h, 60 MG PO DAILY, TAB 12/31/17 Metoprolol Tartrate* (Lopressor*) 50 Mg Tab, 50 MG PO BID, #60 TAB 12/31/17 Meclizine Hcl* (Meclizine Hcl*) 25 Mg Tablet, 25 MG PO Q8H PRN for DIZZINESS, TAB 12/31/17 Ergocalciferol (Vitamin D2) (VITAMIN D2) 50,000 Unit Capsule, 24639 UNIT PO Q SUN, CAP 12/31/17 Allergies Allergies: Coded Allergies: No Known Drug Allergies (Verified Allergy, Mild, 12/31/17) PMhx/Soc Medical and Surgical Hx: pt denies Medical Hx, pt denies Surgical Hx History of Surgery: Yes (THYROID , FIBROID SCRAPING ) Anesthesia Reaction: No Hx Neurological Disorder: No Hx Respiratory Disorders: No Hx Cardiac Disorders: Yes (HTN, HIGH CHOLESTEROL, HEART ATTACK ) Hx Psychiatric Problems: No Hx Miscellaneous Medical Probl: No Hx Alcohol Use: No Hx Substance Use: No Hx Tobacco Use: No Smoking Status: Never smoker FmHx Family History: No diabetes Physical Exam Vitals Vital Signs Date Temp Pulse Resp B/P (MAP) Pulse Ox O2 O2 Flow FiO2 Time Delivery Rate 06/10/18 98.7 70 19 150/90 98 Room Air 01:58 (110) 06/09/18 98.7 94 19 154/81 98 22:53 (105) Physical Exam General: Well developed, well nourished, no acute distress Head: Normocephalic, atraumatic. Eyes: Pupils equally reactive, EOM intact ENT: Moist mucous membranes Neck: Supple, no lymphadenopathy Respiratory: Lungs clear bilaterally, no distress Cardiovascular: RRR, no murmurs, rubs, or gallops Abdominal: Soft, non-tender, non-distended, no peritoneal signs, no pulsatile mass Back: Mild reproducible paraspinal soft tissue tenderness to the lumbar back without midline tenderness deformities or step-offs : Deferred MSK: No edema, no unilateral swelling, 5/5 strength Neurologic: Alert and oriented, moving all extremities, normal speech, no focal weakness, no cerebellar signs Skin: No rash Psych: Normal mood Results 24 hrs Current Medications Medications Dose Sig/Justin Start Time Status Last (Trade) Ordered Route PRN Stop Time Admin Dose Reason Admin Diazepam 5 mg ONCE ONCE 06/10/18 (Valium) PO 02:30 06/10/18 02:31 Procedures/MDM The patient's low back pain is unlikely related to serious etiology. The patient exhibits no clinical signs or symptoms and has no history or risk factors to suggest cauda equina, cord compression, epidural abscess, epidural hematoma, acute aortic aneurysm or dissection. Patient has a benign exam. Pain is improved after nonsteroidal anti- inflammatory with clear mechanical trigger. This is very consistent with lumbar myofascial strain. Consider lumbar spasm. No indication for x-ray imaging at this time. Pain is improved. Valium provided for muscle relaxation. Warm compresses advised. Range of motion exercises and return precautions were discussed. The patient can be safely discharged home. The patient does not have an identifiable emergent medical condition that warrants inpatient hospitalization at this time. The patient is deemed safe for discharge with outpatient follow-up. We discussed follow up with the patient's primary care doctor within 24 to 48 hours as needed. We also discussed return to the emergency room for worsening symptoms or worsening condition. Outpatient referral: [None required] Discharge Medications: Valium, Motrin Departure Diagnosis: Primary Impression: Acute lumbar myofascial strain Encounter type: initial encounter Qualified Codes: S39.012A - Strain of muscle, fascia and tendon of lower back, initial encounter Condition: Stable Patient Instructions: Muscle Spasm, Back Pain (Acute Or Chronic) Referrals: COUNT INCLUDES THE [facility] YOU HAVE RECEIVED A MEDICAL SCREENING EXAM AND THE RESULTS INDICATE THAT YOU DO NOT HAVE A CONDITION THAT REQUIRES URGENT TREATMENT IN THE EMERGENCY DEPARTMENT. FURTHER EVALUATION AND TREATMENT OF YOUR CONDITION CAN WAIT UNTIL YOU ARE SEEN IN YOUR DOCTORS OFFICE WITHIN THE NEXT 1-2 DAYS. IT IS YOUR RESPONSIBILITY TO MAKE AN APPOINTMENT FOR FOLOW-UP CARE. IF YOU HAVE A PRIMARY DOCTOR --you should call your primary doctor and schedule an appointment IF YOU DO NOT HAVE A PRIMARY DOCTOR YOU CAN CALL OUR PHYSICIAN REFERRAL HOTLINE AT IF YOU CAN NOT AFFORD TO SEE A PHYSICIAN YOU CAN CHOSE FROM THE FOLLOWING COUNT INCLUDES THE [facility] [address] [facility] [address] [facility] [facility] [address] [facility] [address] [facility] [address] [facility]. [facility]. [address] [facility] YOU HAVE RECEIVED A MEDICAL SCREENING EXAM AND THE RESULTS INDICATE THAT YOU DO NOT HAVE A CONDITION THAT REQUIRES URGENT TREATMENT IN THE EMERGENCY DEPARTMENT. FURTHER EVALUATION AND TREATMENT OF YOUR CONDITION CAN WAIT UNTIL YOU ARE SEEN IN YOUR DOCTORS OFFICE WITHIN THE NEXT 1-2 DAYS. IT IS YOUR RESPONSIBILITY TO MAKE AN APPOINTMENT FOR FOLOW-UP CARE. IF YOU HAVE A PRIMARY DOCTOR --you should call your primary doctor and schedule and appointment IF YOU DO NOT HAVE A PRIMARY DOCTOR YOU CAN CALL OUR PHYSICIAN REFERRAL HOTLINE AT . IF YOU CAN NOT AFFORD TO SEE A PHYSICIAN YOU CAN CHOSE FROM THE FOLLOWING [facility] INSTITUTIONS: [facility] [address] [place] [address] [facility] [address] [place] [address] [facility] [address] [place] [address] Additional Instructions: Call your primary care doctor TOMORROW for an appointment during the next 1 WEEK.Tell the loan secretary that you were referred from this facility.See the doctor sooner or return here if your condition worsens before your appointment time. Please return sooner for any uncontrolled pain, weakness of the legs, trouble controlling bowel movements or bladder. YESSENIA CARROLL MD Jun 10, 2018 02:06
[2018-06-10] MEDS ORDERED: DIAZEPAM 5 MG TAB PO ONE (02:30)
== END 2018-06-10 02:14 | disposition home or self-care (01) ==
LOC: E/R 22:50
DX: S39.012A Strain of muscle, fascia and tendon of lower back, initial encounter (principal); I10 Essential (primary) hypertension; X58.XXXA Exposure to other specified factors, initial encounter; Y92.9 Unspecified place or not applicable; Z79.82 Long term (current) use of aspirin
CPT/HCPCS: 99283